=== PATIENT | female | born 1995 | race Caucasian/White ===

== ENCOUNTER 2018-05-26 23:03 | Emergency (ER) | payer OTHER ==
[2018-05-26 23:46] LABS: APPEARANCE,URINE SLIGHTLY-CLOUDY; BILIRUBIN,URINE NEGATIVE (NEGATIVE); COLOR,URINE STRAW; GLUCOSE, URINE NEGATIVE (NEGATIVE); KETONES,URINE NEGATIVE (NEGATIVE); LEUKOCYTE ESTERASE,URINE NEGATIVE (NEGATIVE); NITRITE,URINE NEGATIVE (NEGATIVE); PROTEIN,URINE NEGATIVE (NEGATIVE); URINE SPECIFIC GRAVITY 1.003; UROBILINOGEN,URINE NEGATIVE mg/dL (<2.0)
--- NOTE | 2018-05-27 00:27 | ER Document Report ---
ED General - General Chief Complaint: Abdominal Pain Stated Complaint: ABDOMINAL PAIN Time Seen by Provider: 05/27/18 00:19 Notes: Patient is a pleasant 22-year-old female who presents with complaints of some mild lower back pain. No pelvic pain. She also has noticed some vaginal discharge. She said on she had just a slight yellow tint to her discharge. Monday she had no discharge. Today she noticed some darkening discharge. She says it could be old blood. She notes any bright red blood. She has not seen any active bleeding. No fevers. No vomiting. This is her first . She is approximately 17 weeks . She is followed by an OB doctor in [place]. She is visiting from out of town. No comp occasions with her thus far. TRAVEL OUTSIDE OF THE [place] IN LAST 30 DAYS: No - Related Data Allergies/Adverse Reactions: No Known Allergies Allergy (Unverified 05/26/18 23:08) Past Medical History - Social History Smoking Status: Never Smoker Frequency of alcohol use: None Drug Abuse: None Family History: Reviewed & Not Pertinent Review of Systems - Review of Systems Notes: My Normal Review Basic REVIEW OF SYSTEMS: CONSTITUTIONAL : Denies fever, chills, or sweats. Denies recent illness. RESPIRATORY: Denies cough, cold, or chest congestion. Denies shortness of breath, difficulty breathing, or wheezing. GASTROINTESTINAL: Denies abdominal pain. Denies nausea, vomiting, or diarrhea. GENITOURINARY: Denies difficulty urinating, painful urination, burning, frequency, or blood in urine. FEMALE GENITOURINARY: Some abnormal vaginal discharge LMP: Currently MUSCULOSKELETAL: Mild low back pain SKIN: Denies rash or skin lesions. NEUROLOGICAL: Denies altered mental status or loss of consciousness. Denies headache. Denies weakness or paralysis or loss of use of either side. Denies problems with gait or speech. Denies sensory or motor loss. ALL OTHER SYSTEMS REVIEWED AND NEGATIVE. Physical Exam - Vital signs Vitals: Temp Pulse Resp BP Pulse Ox 98.6 F 98 18 141/72 H 100 05/26/18 23:14 05/26/18 23:14 05/26/18 23:14 05/26/18 23:14 05/26/18 23:14 - Notes Notes: General Appearance: Well nourished, alert, cooperative, no acute distress, no obvious discomfort. Well-appearing. Vitals: reviewed, See vital signs table. Eyes: PERRL, EOMI, Conjuctiva clear Mouth: No decreasd moisture Lungs: No wheezing, No rales, No rhonci, No accessory muscle use, good air exchange bilaterally. Heart: Normal rate, Regular rythm, No murmur, no rub Abdomen: Normal BS, soft, No rigidity, No abdominal tenderness, No guarding, no rebound, no abdominal masses, no organomegaly Pelvic exam: Normal external genitalia. Vault. Some whitish discharge. No other acute concerning abnormalities. Pelvic exam performed with female integration technician Jelly at bedside. Extremities: good pulses in all extremities, no swelling or tenderness in the extremities, no edema. Skin: warm, dry, appropriate color, no rash Neuro: speech clear, oriented x 3, normal affect, responds appropriately to questions. Course - Re-evaluation Re-evalutation: 05/27/18 02:38 On pelvic exam I did not see any signs of any concerning discharge. She had some whitish discharge which is not normal for her. I informed her that as progresses sometimes vaginal discharge can change. She had some back pain earlier today but currently is pain-free. She has no pelvic pain. No pain in the abdomen. She has no blood in the vaginal vault. Clinically she looks well. Ultrasound did not show any concerning findings. Wet prep did not show any evidence of bacterial or white blood cells. Feel she safe to be discharged home. I informed her that she should return to ER immediately if she has vaginal bleeding, recurrent worsening pain, fevers, or feels unwell. Patient agrees with plan will be discharged home. Dictation of this chart was performed using voice recognition software; therefore, there may be some unintended grammatical errors. - Vital Signs Vital signs: Temp Pulse Resp BP Pulse Ox 98.6 F 98 18 141/72 H 100 05/26/18 23:14 05/26/18 23:14 05/26/18 23:14 05/26/18 23:14 05/26/18 23:14 - Laboratory Laboratory results interpreted by me: 05/26/18 23:15 Urine Blood MODERATE H Discharge - Discharge Clinical Impression: Vaginal discharge Condition: Good Disposition: HOME, SELF-CARE Additional Instructions: Your ultrasound did not show any concerning findings. We do not see evidence of blood or infection on your pelvic exam. Sometimes she can have some discharge during and sometimes it can change as her progresses. Please avoid sexual activity or heavy lifting until you have not had any back pain for at least 2-3 days. Please follow-up with your OB doctor this coming week for reevaluation. Please return to the ER immediately if you have worsening pain, vaginal bleeding, fevers, or feel unwell.
--- NOTE | 2018-05-27 01:34 | RADIOLOGY REPORT (SQ) ---
EXAM DESCRIPTION: US LIMITED COMPLETED DATE/TME: 05/27/2018 00:24 CLINICAL HISTORY: 22 years, Female, pain and discharge in COMPARISON: None. TECHNIQUE: Transabdominal images of the pelvis were obtained LIMITATIONS: None. FINDINGS: The maternal cervix is closed and measures 3.3 cm in length. A single live intrauterine is identified in the cephalic position. The heart rate measures 141 bpm. The placenta is posterior with no evidence of placenta previa or abruption. IMPRESSION: Single live intrauterine copyright 2010 [employer]- All Rights Reserved
[2018-05-27 01:41] LABS: T.VAGINALIS (WET MOUNT) NO TRICHOMONAS SEEN; WBCS (WET MOUNT) NO WBCS SEEN; YEAST (WET MOUNT) NO YEAST SEEN
[2018-05-27 03:02] VITALS: BP 113/64
[2018-05-27 03:08] LABS: CHLAM PCR NOT DETECTED (NOT DETECT); GON PCR NOT DETECTED (NOT DETECT)
== END 2018-05-27 03:00 | disposition home or self-care (01) ==
LOC: ER 23:03
DX: O26.899 Other specified pregnancy related conditions, unspecified trimester (principal); N89.8 Other specified noninflammatory disorders of vagina; O99.89 Other specified diseases and conditions complicating pregnancy, childbirth and the puerperium; M54.5 Low back pain; Z3A.00 Weeks of gestation of pregnancy not specified
CPT/HCPCS: 76815; 81001; 87210; 87491; 87591; 99284